=== PATIENT | male | born 1995 | race Caucasian/White ===

== ENCOUNTER 2020-01-26 09:44 | Emergency (ER) | payer OTHER ==
[~2020-01-26] VITALS: Ht 182.9 cm; Wt 65.9 kg
[2020-01-26 10:36] VITALS: BP 130/91
[2020-01-26] MEDS ORDERED: LIDOcaine 1% W/epiNEPHrine 1:200,000 10ml vial IJ ONE (12:00)
[2020-01-26] MEDS ORDERED: CEPH-572 PO (12:24)
[2020-01-26] MEDS ORDERED: ACET-1059 PO (12:24)
[2020-01-26] MEDS ORDERED: cephalexin 250mg capsule PO ONE (13:30)
== END 2020-01-26 13:31 | disposition home or self-care (01) ==
LOC: ER 09:49
DX: S62.522B Displaced fracture of distal phalanx of left thumb, initial encounter for open fracture (principal); Z79.899 Other long term (current) drug therapy; W27.8XXA Contact with other nonpowered hand tool, initial encounter; Y93.89 Activity, other specified; Y92.89 Other specified places as the place of occurrence of the external cause; Y99.8 Other external cause status
CPT/HCPCS: 12001; 73140; 99283